=== PATIENT | female | born 1965 | race Two or more races ===

== ENCOUNTER 2021-03-05 17:43 | Inpatient (IN) | payer BC ==
[~2021-03-05] VITALS: Ht 149.9 cm; Wt 62.7 kg
--- NOTE | 2021-03-05 19:30 | ED.ADGEN ---
General Adult EDM: Chief Complaint: SHORTNESS OF BREATH HPI: HPI: Patient is a 55 year old female coming in for multiple complaints associate with Covid. Patient tested postive 7 days ago, and surgeries and limits ago had contact with her son who also tested positive for 10 days prior. Patient has had nonproductive cough, frontal headache, fevers, sore throat, and fatigue. Denies any GI complaints. Patient denies any past medical history. Denies any loss of smell or taste. Has been taking Tylenol for fevers and headache, last dose 3 hours ago. Review of Systems: Review of Systems: All other systems within normal limits except for as noted in the HPI Current Medications: Current Medications Medications (Trade) Dose Ordered Sig/Walt Start Time Stop Time Status Last Admin Dose Admin Acetaminophen (Tylenol) 650 mg PRN Q4HRS PRN 03/05/21 23:30 03/06/21 23:29 Ceftriaxone Sodium (Rocephin) 1 gm 1X ONCE 03/05/21 23:30 03/05/21 23:31 DC 03/05/21 23:56 1 GM Dexamethasone Sodium Phosphate (Decadron) 10 mg 1X ONCE 03/05/21 22:00 03/05/21 22:01 DC 03/05/21 23:01 10 MG Doxycycline Hyclate 100 mg/ Dextrose 100 ml @ 50 mls/hr 1X ONCE 03/05/21 23:30 03/06/21 01:29 DC 03/05/21 23:59 50 MLS/HR Info (CONTRAST GIVEN -- Rx MONITORING) 1 each PRN DAILY PRN 03/05/21 22:15 03/07/21 22:14 Iohexol (Omnipaque 350 Mg/ml) 90 ml 1X ONCE 03/05/21 22:00 03/05/21 22:05 DC Ondansetron HCl (Zofran) 4 mg PRN Q8HRS PRN 03/05/21 23:30 03/06/21 23:29 Sodium Chloride 1,000 ml @ 75 mls/hr [id number] 03/05/21 23:30 03/06/21 23:29 03/05/21 23:58 75 MLS/HR Allergies: Allergies: Allergies Coded Allergies Type Severity Reaction Last Updated Verified No Known Drug Allergies 03/05/21 No Physical Exam: PE: Constitutional: Well developed, well nourished, no acute distress, non-toxic a ppearance. [] HENT: Normocephalic, atraumatic, bilateral external ears normal, nose normal. [] Eyes: PERRLA, conjunctiva normal, no discharge. [] Neck: No rigidity, supple, no stridor. [] Cardiovascular: Regular rate and rhythm, brisk cap refill [] Lungs & Thorax: Non labored symmetric respirations, no tachypnea or respiratory distress [] Abdomen: Soft, nondistended. Skin: Warm, dry, no erythema, no rash. [] Back: Unremarkable Extremities: No deformities, range of motion grossly intact, no lower extremity edema [] Neurologic: Alert and oriented X 3, no focal deficits noted. [] Psychologic: Affect normal, judgement normal, mood normal. [] Current Patient Data: Labs: Laboratory Tests Test 03/05/21 19:55 03/05/21 20:46 03/05/21 21:24 White Blood Count 9.0 x10^3/uL (4.0-11.0) Red Blood Count 4.77 x10^6/uL (3.50-5.40) Hemoglobin 14.0 g/dL (12.0-15.5) Hematocrit 41.6 % (36.0-47.0) Mean Corpuscular Volume 87 fL (79-100) Mean Corpuscular Hemoglobin 29 pg (25-35) Mean Corpuscular Hemoglobin Concent 34 g/dL (31-37) Red Cell Distribution Width 13.9 % (11.5-14.5) Platelet Count 251 x10^3/uL (140-400) Neutrophils (%) (Auto) 87 % (31-73) H Lymphocytes (%) (Auto) 10 % (24-48) L Monocytes (%) (Auto) 2 % (0-9) Eosinophils (%) (Auto) 0 % (0-3) Basophils (%) (Auto) 1 % (0-3) Neutrophils # (Auto) 7.8 x10^3/uL (1.8-7.7) H Lymphocytes # (Auto) 0.9 x10^3/uL (1.0-4.8) L Monocytes # (Auto) 0.2 x10^3/uL (0.0-1.1) Eosinophils # (Auto) 0.0 x10^3/uL (0.0-0.7) Basophils # (Auto) 0.1 x10^3/uL (0.0-0.2) Segmented Neutrophils % 71 % (35-66) H Band Neutrophils % 18 % (0-9) H Lymphocytes % 10 % (24-48) L Monocytes % 1 % (0-10) Platelet Estimate Adequate (ADEQUATE) Lactic Acid Level 1.0 mmol/L (0.4-2.0) Troponin I Quantitative < 0.017 ng/mL (0.000-0.055) D-Dimer (Renuka) 0.64 ug/mlFEU (0.00-0.50) H Sodium Level 142 mmol/L (136-145) Potassium Level 4.9 mmol/L (3.5-5.1) Chloride Level 100 mmol/L (98-107) Carbon Dioxide Level 23 mmol/L (21-32) Anion Gap 19 (6-14) H Blood Urea Nitrogen 7 mg/dL (7-20) Creatinine 0.8 mg/dL (0.6-1.0) Estimated GFR (Cockcroft-Gault) 73.9 BUN/Creatinine Ratio 9 (6-20) Glucose Level 93 mg/dL (70-99) Calcium Level 8.6 mg/dL (8.5-10.1) Magnesium Level 2.5 mg/dL (1.8-2.4) H Total Bilirubin 0.3 mg/dL (0.2-1.0) Aspartate Amino Transferase (AST) 35 U/L (15-37) Alanine Aminotransferase (ALT) 30 U/L (14-59) Alkaline Phosphatase 104 U/L (46-116) HO-Bbc-W-Type Natriuretic Peptide 110 pg/mL (0-124) Total Protein 7.5 g/dL (6.4-8.2) Albumin 3.9 g/dL (3.4-5.0) Albumin/Globulin Ratio 1.1 (1.0-1.7) Urine Collection Type Void Urine Color Yellow Urine Clarity Clear Urine pH 6.5 (<5.0-8.0) Urine Specific [place] 1.010 (1.000-1.030) Urine Protein Negative mg/dL (NEG-TRACE) Urine Glucose (UA) Negative mg/dL (NEG) Urine Ketones (Stick) Negative mg/dL (NEG) Urine Blood Negative (NEG) Urine Nitrite Negative (NEG) Urine Bilirubin Negative (NEG) Urine Urobilinogen Dipstick 0.2 mg/dL (0.2 mg/dL) Urine Leukocyte Esterase Small (NEG) Urine RBC Rare /HPF (0-2) Urine WBC 5-10 /HPF (0-4) Urine Squamous Epithelial Cells Few /LPF Urine Bacteria Few /HPF (0-FEW) Laboratory Tests 03/05/21 19:55 Laboratory Tests 03/05/21 20:46 Vital Signs: Vital Signs Date Time Temp Pulse Resp B/P (MAP) Pulse Ox O2 Delivery O2 Flow Rate FiO2 03/06/21 00:02 102.7 102.7 03/05/21 19:56 70 22 138/69 (92) 95 Room Air EKG: EKG: Sinus rhythm, heart rate 70 bpm, left axis deviation, no ST ovation depression, no ectopy. [] Heart Score: C/O Chest Pain: Yes HEART Score for Chest Pain: HEART Score for Chest Pain Response (Comments) Value History Slighlty/Non-Suspicious 0 ECG Nonspecific Repolarizatio 1 Age >45 - < 65 1 Risk Factors No Risk Factors 0 Troponin < Normal Limit 0 Total 2 Risk Factors: Risk Factors: DM, Current or recent (<one month) smoker, HTN, HLP, family history of CAD, obesity. Risk Scores: Score 0 - 3: 2.5% MACE over next 6 weeks - Discharge Home Score 4 - 6: 20.3% MACE over next 6 weeks - Admit for Clinical Observation Score 7 - 10: 72.7% MACE over next 6 weeks - Early Invasive Strategies Radiology/Procedures: Radiology/Procedures: [facility] [address] [place] [address] IMAGING REPORT Signed PATIENT: JOHANA HAMM ACCOUNT: [id number] : 1965 LOCATION: ER AGE: 55 SEX: F EXAM STATUS: REG ER ORD. PHYSICIAN: HERB MORALEZ MD REASON: pe, dyspnea COVID PROCEDURE: CT ANGIOGRAPHY CHEST Exam: CT of chest with contrast INDICATION: Dyspnea,covid TECHNIQUE: Sequential axial images through the chest obtained following the admi nistration of 90 mL of Isovue-370 IV contrast. Sagittal and coronal reformatted images were reconstructed from the axial data and reviewed. 3-D reformatted images were reconstructed from the axial data and reviewed. Exposure: One or more of the following in the visualized dose reduction techniques were utilized for this examination: 1. Automated exposure control 2. Adjustment of the MA and/or KV according to patient size 3. Use of iterative of reconstructive technique Comparisons: Chest x-ray same day FINDINGS: Visualized portions of the thyroid are unremarkable. No enlarged mediastinal lymph nodes are identified. Heart size is normal. No pericardial effusion. Thoracic aorta has a normal course and caliber. Pulmonary artery is not enlarged. No pulmonary embolus identified within the main, lobar or segmental arteries. Airways are patent. Patchy areas of consolidation in lungs bilaterally. No pneumothorax. No suspicious lung nodules are identified. No pleural effusion or thickening. Visualized upper abdomen is unremarkable. No suspicious osseous lesions or acute fractures. IMPRESSION: 1. No pulmonary embolus identified in the main, lobar or segmental pulmonary arteries. 2. Patchy areas of consolidation in lungs bilaterally favored to be infectious or inflammatory in etiology, consistent with history of Covid Electronically signed by: Marie Campos MD (03/05/2021 11:06 PM) [facility] DICTATED and SIGNED BY: MARIE CAMPOS MD DATE: 03/05/21 [id number] [][facility] [address] [place] [address] IMAGING REPORT Signed PATIENT: JOHANA HAMM ACCOUNT: [id number] : 1965 LOCATION: ER AGE: 55 SEX: F EXAM STATUS: REG ER ORD. PHYSICIAN: HERB MORALEZ MD REASON: headache-COVID PROCEDURE: CT HEAD WO CONTRAST EXAM: CT Head without IV contrast CLINICAL HISTORY: Reason: headache-COVID / Spl. Instructions: / History: COMPARISON: None. TECHNIQUE: Routine CT of the head without contrast. PQRS compliance statement - One or more of the following individualized dose reduction techniques were utilized for this study: 1. Automated exposure control 2. Adjustment of the mA and/or kV according to patient size 3. Use of iterative reconstruction technique FINDINGS: There is no evidence of hemorrhage, mass or extra-axial fluid collection. Bush-white differentiation is maintained with no evidence of edema. There is no mass effect or shift of the intracranial structures. The ventricles, basilar cisterns and cortical sulci are normal in size and configuration for the patients stated age. The cerebellum and brainstem are unremarkable. The calvarium demonstrates no evidence of fracture or focal lesion. There is normal aeration of the visualized paranasal sinuses and mastoid air cells. The visualized portions of the orbits are normal. IMPRESSION: No evidence for acute intracranial process. Electronically signed by: Da Aceves MD (03/05/2021 8:28 PM) [facility] DICTATED and SIGNED BY: DA ACEVES MD DATE: 03/05/[id number] 0 Course & Med Decision Making: Course & Med Decision Making Pertinent Labs and Imaging studies reviewed. (See chart for details) [] Dragon Disclaimer: Dragon Disclaimer: This electronic medical record was generated, in whole or in part, using a voice recognition dictation system. Departure Departure Impression: Primary Impression: COVID-19 Additional Impression: Pneumonia Disposition: ADMITTED INPATIENT Admitting Physician: MARGOT Condition: STABLE Problem Qualifiers HERB MORALEZ MD Mar 05, 2021 19:30
[2021-03-05 20:10] LABS: BASO # 0.1 x10^3/uL (0.0-0.2); BASO % 1 % (0-3); EOS % 0 % (0-3); HEMATOCRIT 41.6 % (36.0-47.0); LYMPH # 0.9 x10^3/uL (1.0-4.8); LYMPH % 10 % (24-48); MEAN CORPUSCULAR HEMOGLOBIN 29 pg (25-35); MEAN CORPUSCULAR HGB CONC 34 g/dL (31-37); MEAN CORPUSCULAR VOLUME 87 fL (79-100); MONO # 0.2 x10^3/uL (0.0-1.1); MONO % 2 % (0-9); NEUT # 7.8 x10^3/uL (1.8-7.7); NEUT % 87 % (31-73); PLATELET COUNT 251 x10^3/uL (140-400); RED BLOOD COUNT 4.77 x10^6/uL (3.50-5.40); RED CELL DISTRIBUTION WIDTH 13.9 % (11.5-14.5)
--- NOTE | 2021-03-05 20:30 | RAD ---
EXAM: CT Head without IV contrast CLINICAL HISTORY: Reason: headache-COVID / Spl. Instructions: / History: COMPARISON: None. TECHNIQUE: Routine CT of the head without contrast. PQRS compliance statement - One or more of the following individualized dose reduction techniques wer e utilized for this study: 1. Automated exposure control 2. Adjustment of the mA and/or kV according to patient size 3. Use of iterative reconstruction technique FINDINGS: There is no evidence of hemorrhage, mass or extra-axial fluid collection. Bush-white differentiation is maintained with no evidence of edema. There is no mass effect or shift of the intracranial structures. The ventricles, basilar cisterns and cortical sulci are normal in size and configuration for the amparo ents stated age. The cerebellum and brainstem are unremarkable. The calvarium demonstrates no evidence of fracture or focal lesion. There is normal aeration of the visualized paranasal sinuses and mastoid air cells. The visualized portions of the orbits are normal. IMPRESSION: No evidence for acute intracranial process. Electronically signed by: Da Mims MD (03/05/2021 8:28 PM) [facility]
[2021-03-05 20:32] LABS: % BANDS 18 % (0-9); % LYMPHS 10 % (24-48); % MONOS 1 % (0-10); % SEGS 71 % (35-66); PLT ESTIMATE ADEQUATE (ADEQUATE)
--- NOTE | 2021-03-05 20:43 | EKG ---
[facility] [address] [place] [address] Test Date: 2021-03-05 Test Time: 19:40:22 Pat Name: JOHANA HAMM Department: Room: Gender: F Enrollment Counselor: : 1965 Requested By: HERB OMRALEZ Order Number: [id number] Reading MD: Measurements Intervals [place] Rate: 70 P: -23 [place]: 142 QRS: -5 QRSD: 70 T: 14 QT: 382 QTc: 415 Interpretive Statements SINUS RHYTHM LEFTWARD AXIS QRS(T) CONTOUR ABNORMALITY CANNOT RULE OUT ANTEROSEPTAL MYOCARDIAL DAMAGE BORDERLINE ECG RI6.02 No previous ECG available for comparison
--- NOTE | 2021-03-05 20:50 | RAD ---
EXAMINATION: XR CHEST 1V CLINICAL HISTORY: Covid EXAM DATE/TIME: 03/05/2021 8:15 PM COMPARISON: None FINDINGS: Lines, Tubes, and Devices: None. Cardiomediastinal Silhouette: Normal heart size. Aortic atherosclerotic calcification. Lungs and Pleura: Pulmonary hypoexpansion with mild subtle patchy opacities bilaterally, greater on t he left. No evidence of pleural effusion or pneumothorax. Bones and Soft Tissues: No acute osseous abnormality. IMPRESSION: Bilateral patchy airspace disease, compatible with viral or atypical pneumonia. Electronically signed by: John Milan DO (03/05/2021 8:48 PM) [facility]
[2021-03-05 21:10] LABS: CALCIUM 8.6 mg/dL (8.5-10.1); CREATININE 0.8 mg/dL (0.6-1.0); GFR 73.9; POTASSIUM 4.9 mmol/L (3.5-5.1)
[2021-03-05 21:16] LABS: ALBUMIN 3.9 g/dL (3.4-5.0); ALBUMIN/GLOBULIN RATIO 1.1 (1.0-1.7); MAGNESIUM 2.5 mg/dL (1.8-2.4); TOTAL BILIRUBIN 0.3 mg/dL (0.2-1.0); TOTAL PROTEIN 7.5 g/dL (6.4-8.2)
[2021-03-05 21:32] LABS: BILIRUBIN,URINE NEGATIVE (NEG); CLARITY,URINE CLEAR; COLOR,URINE YELLOW; NITRITE,URINE NEGATIVE (NEG); PH,URINE 6.5 (<5.0-8.0); PROTEIN,URINE NEGATIVE (NEG-TRACE); UROBILINOGEN,URINE 0.2 mg/dL (0.2 mg/dL)
[2021-03-05 21:40] LABS: BACTERIA,URINE FEW /HPF (0-FEW); RBC,URINE RARE /HPF (0-2)
[2021-03-05] MEDS ORDERED: DEXAMETHASONE SOD PHOS 20 MG/5 ML VIAL. IV ONE (22:00)
[2021-03-05] MEDS ORDERED: IOHEXOL 350 MG/ML 100 ML VIAL. IV ONE (22:00)
[2021-03-05] MEDS ORDERED: CONTRAST GIVEN. MC PRN (22:15)
--- NOTE | 2021-03-05 23:08 | RAD ---
Exam: CT of chest with contrast INDICATION: Dyspnea,covid TECHNIQUE: Sequential axial images through the chest obtained following the administration of 90 mL o f Isovue-370 IV contrast. Sagittal and coronal reformatted images were reconstructed from the axial d hernandez and reviewed. 3-D reformatted images were reconstructed from the axial data and reviewed. Exposure: One or more of the following in the visualized dose reduction techniques were utilized for this examination: 1. Automated exposure control 2. Adjustment of the MA and/or KV according to patient size 3. Use of iterative of reconstructive technique Comparisons: Chest x-ray same day FINDINGS: Visualized portions of the thyroid are unremarkable. No enlarged mediastinal lymph nodes are identifi ed. Heart size is normal. No pericardial effusion. Thoracic aorta has a normal course and caliber. Pulmon jose artery is not enlarged. No pulmonary embolus identified within the main, lobar or segmental arter ies. Airways are patent. Patchy areas of consolidation in lungs bilaterally. No pneumothorax. No suspiciou s lung nodules are identified. No pleural effusion or thickening. Visualized upper abdomen is unremarkable. No suspicious osseous lesions or acute fractures. IMPRESSION: 1. No pulmonary embolus identified in the main, lobar or segmental pulmonary arteries. 2. Patchy areas of consolidation in lungs bilaterally favored to be infectious or inflammatory in et iology, consistent with history of Covid Electronically signed by: Marie Mcclelland MD (03/05/2021 11:06 PM) [facility]
[2021-03-05] MEDS ORDERED: ACETAMINOPHEN 500 MG TABLET PO ONE (23:15)
[2021-03-05] MEDS ORDERED: ONDANSETRON PF 4 MG/2 ML VIAL. IV PRN (23:30)
[2021-03-05] MEDS ORDERED: cefTRIAXone IV Push 1 GM VIAL. IVP ONE (23:30)
[2021-03-05] MEDS ORDERED: DOXYCYCLINE HYCLATE 100 MG in IV DEXTROSE 5% 100ML 100 ML IV ONE (23:30)
[2021-03-05] MEDS ORDERED: ACETAMINOPHEN 325 MG TABLET. PO PRN (23:30)
[2021-03-05] MEDS: IV NORMAL SALINE 1000ML BAG 1,000 ML IV SCH (23:58)
[2021-03-06 01:40] VITALS: BP 111/59
[2021-03-06 07:00] VITALS: BP 98/55
[2021-03-06 07:55] LABS: BASO % 0 % (0-3); EOS % 0 % (0-3); HEMATOCRIT 38.9 % (36.0-47.0); LYMPH # 0.6 x10^3/uL (1.0-4.8); LYMPH % 11 % (24-48); MEAN CORPUSCULAR HEMOGLOBIN 29 pg (25-35); MEAN CORPUSCULAR HGB CONC 34 g/dL (31-37); MEAN CORPUSCULAR VOLUME 87 fL (79-100); MONO # 0.1 x10^3/uL (0.0-1.1); MONO % 1 % (0-9); NEUT # 4.7 x10^3/uL (1.8-7.7); NEUT % 88 % (31-73); PLATELET COUNT 250 x10^3/uL (140-400); RED BLOOD COUNT 4.49 x10^6/uL (3.50-5.40); RED CELL DISTRIBUTION WIDTH 13.8 % (11.5-14.5); WHITE BLOOD COUNT 5.3 x10^3/uL (4.0-11.0)
[2021-03-06 08:09] LABS: CALCIUM 8.1 mg/dL (8.5-10.1); CREATININE 0.7 mg/dL (0.6-1.0); GFR 86.2; POTASSIUM 4.3 mmol/L (3.5-5.1)
--- NOTE | 2021-03-06 08:33 | PDOC1 ---
History and Physical Date of Admission Date of Admission DATE: 03/06/21 TIME: 08:24 Source Source: Patient History of Present Illness History of Present Illness Ms Young is a 55 yo female with no past medical history who presents to ED with progressively worsening shortness of breath. She notes she tested positive for COVID-19, test on 02/26/2021 and her symptoms started on 02/24/2021 over the past 48 hours prior to hospital presentation she has had a headache that is frontal as well as increased shortness of breath with nonproductive cough congestion fever and chills and worsening anosmia. She has diffuse myalgias and nausea with decreased appetite, no vomiting and no abdominal pain. No recent travel, but she notes contact with her son who also tested positive for 10 days prior. Temp 100.4 F on triage Febrile to 102.7 F on repeat. Tachypneic with respiratory rate 24 and 32 breaths/min. EKG sinus rhythm rate of 70 bpm leftward axis normal intervals, QTC [address] segment elevations T wave flattening in lead III. Labs WBC 9, Hb 14, platelets 251, D-dimer 0.64 NA 142, K4.9, BUN 7, CR 0.8, mag 2.5, glucose 93, troponin 0, urinalysis bland Chest radiograph with bilateral patchy airspace disease Given recent history of Covid she underwent a CT pulmonary angiogram with no acute pulmonary embolism noted but patchy consolidation laterally. Head CT with no acute intracranial abnormality. Admitted for further care Past Medical History Cardiovascular: No pertinent hx Past Surgical History Past Surgical History: No pertinent history Family History Family History: Hypertension Social History Smoke: No ALCOHOL: none Drugs: None Current Medications Current Medications Current Medications Dexamethasone Sodium Phosphate (Decadron) 10 mg 1X ONCE IV Last administered on 03/05/21at 23:01; Start 03/05/21 at 22:00; Stop 03/05/21 at 22:01; Status DC Iohexol (Omnipaque 350 Mg/ml) 90 ml 1X ONCE IV ; Start 03/05/21 at 22:00; Stop 03/05/21 at 22:05; Status DC Info (CONTRAST GIVEN -- Rx MONITORING) 1 each PRN DAILY PRN MC SEE COMMENTS; Start 03/05/21 at 22:15; Stop 03/07/21 at 22:14 Acetaminophen (Tylenol) 1,000 mg 1X ONCE PO Last administered on 03/05/21at 23:11; Start 03/05/21 at 23:15; Stop 03/05/21 at 23:16; Status DC Doxycycline Hyclate 100 mg/ Dextrose 100 ml @ 50 mls/hr 1X ONCE IV Last administered on 03/05/21at 23:59; Start 03/05/21 at 23:30; Stop 03/06/21 at 01:29; Status DC Ceftriaxone Sodium (Rocephin) 1 gm 1X ONCE IVP Last administered on 03/05/21at 23:56; Start 03/05/21 at 23:30; Stop 03/05/21 at 23:31; Status DC Ondansetron HCl (Zofran) 4 mg PRN Q8HRS PRN IV NAUSEA/VOMITING; Start 03/05/21 at 23:30; Stop 03/06/21 at 23:29 Sodium Chloride 1,000 ml @ 75 mls/hr [id number] IV Last administered on 03/05/21at 23:58; Start 03/05/21 at 23:30; Stop 03/06/21 at 23:29 Acetaminophen (Tylenol) 650 mg PRN Q4HRS PRN PO FEVER > 100.3'F; Start 03/05/21 at 23:30; Stop 03/06/21 at 23:29 Allergies Allergies: Coded Allergies: No Known Drug Allergies (Unverified , 03/05/21) ROS General: YES: Fatigue, Malaise, Appetite; No: Chills, Night Sweats, Other PSYCHOLOGICAL ROS: No: Anxiety, Behavioral Disorder, Concentration difficultie, Decreased libido, Depression, Disorientation, Hallucinations, Hostility, Irritablity, Memory difficulties, Mood Swings, Obsessive thoughts, Physical abuse, Sexual abuse, Sleep disturbances, Suicidal ideation, Other Eyes: No Blurry vision, No Decreased vision, No Double vision, No Dry eyes, No Excessive tearing, No Eye Pain, No Itchy Eyes, No Loss of vision, No Photophobia, No Scotomata, No Uses contacts, No Uses glasses, No Other HEENT: YES: Heacaches, Nasal congestion; No: Visual Changes, Hearing change, Nasal discharge, Oral lesions, Sinus pain, Sore Throat, Epistaxis, Sneezing, Snoring, Tinnitus, Vertigo, Vocal changes, Other ALLERGY AND IMMUNOLOGY: No: Hives, Insect Bite Sensitivity, Itchy/Watery Eyes, Nasal Congestion, Post Nasal Drip, Seasonal Allergies, Other Hematological and Lymphatic: No: Bleeding Problems, Blood Clots, Blood Transfusions, Brusing, Night Sweats, Pallor, Swollen Lymph Nodes, Other ENDOCRINE: No: Breast Changes, Galactorrhea, Hair Pattern Changes, Hot Flashes, Malaise/lethargy, Mood Swings, Palpitations, Polydipsia/polyuria, Skin Changes, Temperature Intolerance, Unexpected Weight Changes, Other Breast: No New/Changing Breast Lumps, No Nipple changes, No Nipple discharge, No Other Respiratory: YES: Cough, Shortness of breath, SOB with excertion, Tachypnea, Wheezing; No: Hemoptysis, Orthopnea, Pleuritic Pain, Sputum Changes, Stridor, Other Cardiovascular: No Chest Pain, No Palpitations, No Orthopnea, No Paroxysmal Noc. Dyspnea, No Edema, No Lt Headedness, No Other Gastrointestinal: Yes Nausea, Yes Abdominal Pain; No Vomiting, No Diarrhea, No Constipation, No Melena, No Hematochezia, No Other Genitourinary: No Dysuria, No Frequency, No Incontinence, No Hematuria, No Retention, No Discharge, No Urgency, No Pain, No Flank Pain, No Other, No , No , No , No , No , No , No Musculoskeletal: No Gait Disturbance, No Joint Pain, No Joint Stiffness, No Joint Swelling, No Muscle Pain, No Muscular Weakness, No Pain In:, No Swelling In:, No Other Neurological: No Behavorial Changes, No Bowel/Bladder ControlChng, No Confusion, No Dizziness, No Gait Disturbance, No Headaches, No Impaired Coord /balance, No Memory Loss, No Numbness/Tingling, No Seizures, No Speech Problems, No Tremors, No Visual Changes, No Weakness, No Other Skin: No Dry Skin, No Eczema, No Hair Changes, No Lumps, No Mole Changes, No Mottling, No Nail Changes, No Pruritus, No Rash, No Skin Lesion Changes, No Other, No Acne Physical Exam General: Alert, Oriented X3, Cooperative, moderate distress HEENT: Atraumatic, PERRLA, EOMI, Mucous membr. moist/pink Lungs: Other (Diffuse wheezing, right lower lung rhonchi) Heart: S1S2, RRR, no thrills, no rubs, no gallops, no murmurs Abdomen: Normal bowel sounds, Soft, No tenderness, No hepatosplenomegaly, No masses Rectal Exam: not examined Extremities: No clubbing, No cyanosis, No edema, Normal pulses, No tenderness/swelling Skin: No rashes, No breakdown, No significant lesion Neuro: Normal gait, Normal speech, Strength at 5/5 X4 ext, Normal tone, Sensation intact, Cranial nerves 3-12 NL, Reflexes 2+ Psych/Mental Status: Mental status NL, Mood NL Vitals Vitals Vital Signs Date Time Temp Pulse Resp B/P (MAP) Pulse Ox O2 Delivery O2 Flow Rate FiO2 03/06/21 03:20 74 94 Room Air 03/06/21 01:40 99.8 24 111/59 (76) 99.8 Labs Labs Laboratory Tests Test 03/05/21 19:55 03/05/21 20:46 03/05/21 21:24 03/06/21 07:40 White Blood Count 9.0 x10^3/uL (4.0-11.0) 5.3 x10^3/uL (4.0-11.0) Red Blood Count 4.77 x10^6/uL (3.50-5.40) 4.49 x10^6/uL (3.50-5.40) Hemoglobin 14.0 g/dL (12.0-15.5) 13.0 g/dL (12.0-15.5) Hematocrit 41.6 % (36.0-47.0) 38.9 % (36.0-47.0) Mean Corpuscular Volume 87 fL (79-100) 87 fL (79-100) Mean Corpuscular Hemoglobin 29 pg (25-35) 29 pg (25-35) Mean Corpuscular Hemoglobin Concent 34 g/dL (31-37) 34 g/dL (31-37) Red Cell Distribution Width 13.9 % (11.5-14.5) 13.8 % (11.5-14.5) Platelet Count 251 x10^3/uL (140-400) 250 x10^3/uL (140-400) Neutrophils (%) (Auto) 87 % (31-73) 88 % (31-73) Lymphocytes (%) (Auto) 10 % (24-48) 11 % (24-48) Monocytes (%) (Auto) 2 % (0-9) 1 % (0-9) Eosinophils (%) (Auto) 0 % (0-3) 0 % (0-3) Basophils (%) (Auto) 1 % (0-3) 0 % (0-3) Neutrophils # (Auto) 7.8 x10^3/uL (1.8-7.7) 4.7 x10^3/uL (1.8-7.7) Lymphocytes # (Auto) 0.9 x10^3/uL (1.0-4.8) 0.6 x10^3/uL (1.0-4.8) Monocytes # (Auto) 0.2 x10^3/uL (0.0-1.1) 0.1 x10^3/uL (0.0-1.1) Eosinophils # (Auto) 0.0 x10^3/uL (0.0-0.7) 0.0 x10^3/uL (0.0-0.7) Basophils # (Auto) 0.1 x10^3/uL (0.0-0.2) 0.0 x10^3/uL (0.0-0.2) Segmented Neutrophils % 71 % (35-66) Band Neutrophils % 18 % (0-9) Lymphocytes % 10 % (24-48) Monocytes % 1 % (0-10) Platelet Estimate Adequate (ADEQUATE) Lactic Acid Level 1.0 mmol/L (0.4-2.0) Troponin I Quantitative < 0.017 ng/mL (0.000-0.055) D-Dimer (Renuka) 0.64 ug/mlFEU (0.00-0.50) Sodium Level 142 mmol/L (136-145) 138 mmol/L (136-145) Potassium Level 4.9 mmol/L (3.5-5.1) 4.3 mmol/L (3.5-5.1) Chloride Level 100 mmol/L (98-107) 103 mmol/L (98-107) Carbon Dioxide Level 23 mmol/L (21-32) 25 mmol/L (21-32) Anion Gap 19 (6-14) 10 (6-14) Blood Urea Nitrogen 7 mg/dL (7-20) 7 mg/dL (7-20) Creatinine 0.8 mg/dL (0.6-1.0) 0.7 mg/dL (0.6-1.0) Estimated GFR (Cockcroft-Gault) 73.9 86.2 BUN/Creatinine Ratio 9 (6-20) Glucose Level 93 mg/dL (70-99) 179 mg/dL (70-99) Calcium Level 8.6 mg/dL (8.5-10.1) 8.1 mg/dL (8.5-10.1) Magnesium Level 2.5 mg/dL (1.8-2.4) Total Bilirubin 0.3 mg/dL (0.2-1.0) Aspartate Amino Transf (AST/SGOT) 35 U/L (15-37) Alanine Aminotransferase (ALT/SGPT) 30 U/L (14-59) Alkaline Phosphatase 104 U/L (46-116) YF-Tgb-G-Type Natriuretic Peptide 110 pg/mL (0-124) Total Protein 7.5 g/dL (6.4-8.2) Albumin 3.9 g/dL (3.4-5.0) Albumin/Globulin Ratio 1.1 (1.0-1.7) Urine Collection Type Void Urine Color Yellow Urine Clarity Clear Urine pH 6.5 (<5.0-8.0) Urine Specific [place] 1.010 (1.000-1.030) Urine Protein Negative mg/dL (NEG-TRACE) Urine Glucose (UA) Negative mg/dL (NEG) Urine Ketones (Stick) Negative mg/dL (NEG) Urine Blood Negative (NEG) Urine Nitrite Negative (NEG) Urine Bilirubin Negative (NEG) Urine Urobilinogen Dipstick 0.2 mg/dL (0.2 mg/dL) Urine Leukocyte Esterase Small (NEG) Urine RBC Rare /HPF (0-2) Urine WBC 5-10 /HPF (0-4) Urine Squamous Epithelial Cells Few /LPF Urine Bacteria Few /HPF (0-FEW) Laboratory Tests Test 03/05/21 19:55 03/05/21 20:46 03/05/21 21:24 03/06/21 07:40 White Blood Count 9.0 x10^3/uL (4.0-11.0) 5.3 x10^3/uL (4.0-11.0) Red Blood Count 4.77 x10^6/uL (3.50-5.40) 4.49 x10^6/uL (3.50-5.40) Hemoglobin 14.0 g/dL (12.0-15.5) 13.0 g/dL (12.0-15.5) Hematocrit 41.6 % (36.0-47.0) 38.9 % (36.0-47.0) Mean Corpuscular Volume 87 fL (79-100) 87 fL (79-100) Mean Corpuscular Hemoglobin 29 pg (25-35) 29 pg (25-35) Mean Corpuscular Hemoglobin Concent 34 g/dL (31-37) 34 g/dL (31-37) Red Cell Distribution Width 13.9 % (11.5-14.5) 13.8 % (11.5-14.5) Platelet Count 251 x10^3/uL (140-400) 250 x10^3/uL (140-400) Neutrophils (%) (Auto) 87 % (31-73) 88 % (31-73) Lymphocytes (%) (Auto) 10 % (24-48) 11 % (24-48) Monocytes (%) (Auto) 2 % (0-9) 1 % (0-9) Eosinophils (%) (Auto) 0 % (0-3) 0 % (0-3) Basophils (%) (Auto) 1 % (0-3) 0 % (0-3) Neutrophils # (Auto) 7.8 x10^3/uL (1.8-7.7) 4.7 x10^3/uL (1.8-7.7) Lymphocytes # (Auto) 0.9 x10^3/uL (1.0-4.8) 0.6 x10^3/uL (1.0-4.8) Monocytes # (Auto) 0.2 x10^3/uL (0.0-1.1) 0.1 x10^3/uL (0.0-1.1) Eosinophils # (Auto) 0.0 x10^3/uL (0.0-0.7) 0.0 x10^3/uL (0.0-0.7) Basophils # (Auto) 0.1 x10^3/uL (0.0-0.2) 0.0 x10^3/uL (0.0-0.2) Segmented Neutrophils % 71 % (35-66) Band Neutrophils % 18 % (0-9) Lymphocytes % 10 % (24-48) Monocytes % 1 % (0-10) Platelet Estimate Adequate (ADEQUATE) Lactic Acid Level 1.0 mmol/L (0.4-2.0) Troponin I Quantitative < 0.017 ng/mL (0.000-0.055) D-Dimer (Renuka) 0.64 ug/mlFEU (0.00-0.50) Sodium Level 142 mmol/L (136-145) 138 mmol/L (136-145) Potassium Level 4.9 mmol/L (3.5-5.1) 4.3 mmol/L (3.5-5.1) Chloride Level 100 mmol/L (98-107) 103 mmol/L (98-107) Carbon Dioxide Level 23 mmol/L (21-32) 25 mmol/L (21-32) Anion Gap 19 (6-14) 10 (6-14) Blood Urea Nitrogen 7 mg/dL (7-20) 7 mg/dL (7-20) Creatinine 0.8 mg/dL (0.6-1.0) 0.7 mg/dL (0.6-1.0) Estimated GFR (Cockcroft-Gault) 73.9 86.2 BUN/Creatinine Ratio 9 (6-20) Glucose Level 93 mg/dL (70-99) 179 mg/dL (70-99) Calcium Level 8.6 mg/dL (8.5-10.1) 8.1 mg/dL (8.5-10.1) Magnesium Level 2.5 mg/dL (1.8-2.4) Total Bilirubin 0.3 mg/dL (0.2-1.0) Aspartate Amino Transf (AST/SGOT) 35 U/L (15-37) Alanine Aminotransferase (ALT/SGPT) 30 U/L (14-59) Alkaline Phosphatase 104 U/L (46-116) VI-Qts-Y-Type Natriuretic Peptide 110 pg/mL (0-124) Total Protein 7.5 g/dL (6.4-8.2) Albumin 3.9 g/dL (3.4-5.0) Albumin/Globulin Ratio 1.1 (1.0-1.7) Urine Collection Type Void Urine Color Yellow Urine Clarity Clear Urine pH 6.5 (<5.0-8.0) Urine Specific [place] 1.010 (1.000-1.030) Urine Protein Negative mg/dL (NEG-TRACE) Urine Glucose (UA) Negative mg/dL (NEG) Urine Ketones (Stick) Negative mg/dL (NEG) Urine Blood Negative (NEG) Urine Nitrite Negative (NEG) Urine Bilirubin Negative (NEG) Urine Urobilinogen Dipstick 0.2 mg/dL (0.2 mg/dL) Urine Leukocyte Esterase Small (NEG) Urine RBC Rare /HPF (0-2) Urine WBC 5-10 /HPF (0-4) Urine Squamous Epithelial Cells Few /LPF Urine Bacteria Few /HPF (0-FEW) Images Images CT of chest with contrast Visualized portions of the thyroid are unremarkable. No enlarged mediastinal l ymph nodes are identified. Heart size is normal. No pericardial effusion. Thoracic aorta has a normal course and caliber. Pulmonary artery is not enlarged. No pulmonary embolus identified within the main, lobar or segmental arteries. Airways are patent. Patchy areas of consolidation in lungs bilaterally. No pneumothorax. No suspicious lung nodules are identified. No pleural effusion or thickening. Visualized upper abdomen is unremarkable. No suspicious osseous lesions or acute fractures. IMPRESSION: 1. No pulmonary embolus identified in the main, lobar or segmental pulmonary arteries. 2. Patchy areas of consolidation in lungs bilaterally favored to be infectious or inflammatory in etiology, consistent with history of Covid Routine CT of the head without contrast: There is no evidence of hemorrhage, mass or extra-axial fluid collection. Bush-white differentiation is maintained with no evidence of edema. There is no mass effect or shift of the intracranial structures. The ventricles, basilar cisterns and cortical sulci are normal in size and configuration for the patients stated age. The cerebellum and brainstem are unremarkable. The calvarium demonstrates no evidence of fracture or focal lesion. There is normal aeration of the visualized paranasal sinuses and mastoid air cells. The visualized portions of the orbits are normal. IMPRESSION: No evidence for acute intracranial process. VTE Prophylaxis Ordered VTE Prophylaxis Devices: Yes VTE Pharmacological Prophylaxi: Yes Assessment/Plan Assessment/Plan A/P: Shortness of breath -dyspnea related to COVID-19 with what appears to be a secondary bacterial pneumonia. Community-acquired pneumonia -secondary to COVID-19. Will cover empirically for atypical organisms given bilateral appearance. Doxycycline and Rocephin. COVID-19 -no hypoxia. Will give supportive care and initiate steroids and remdesivir if she does have O2 requirements. Sepsis - febrile with increased RR and pneumonia. Given empiric IVF and antibiotics FEN -General diet PPX - lovenox FULL CODE Dispo - inpatient Justifications for Admission Other Justification LATOYA FRANCO MD Mar 06, 2021 08:33
[2021-03-06 11:00] VITALS: BP 101/53
[2021-03-06] MEDS ORDERED: guaiFENesin DM 200MG/20MG 10 ML SYRUP PO PRN (13:15)
[2021-03-06] MEDS ORDERED: ONDANSETRON PF 4 MG/2 ML VIAL. IV PRN (13:15)
[2021-03-06] MEDS: DOXYCYCLINE HYCLATE 100 MG TABLET PO SCH ×2 (13:44→21:29)
[2021-03-06] MEDS: IV NORMAL SALINE 1000ML BAG 1,000 ML IV SCH (13:46)
[2021-03-06 15:00] VITALS: BP 115/61
[2021-03-06 19:00] VITALS: BP 119/62
[2021-03-06] MEDS: ACETAMINOPHEN 325 MG TABLET. PO PRN (19:10)
[2021-03-06] MEDS ORDERED: PSYLLIUM HUSK (SUGAR FREE) 1 PKT PACKET PO SCH (21:00)
[2021-03-06] MEDS ORDERED: cefTRIAXone IV Push 1 GM VIAL. IVP SCH (21:00)
[2021-03-06] MEDS ORDERED: ENOXAPARIN 40 MG/0.4 ML SYRINGE. SQ SCH (21:00)
[2021-03-06] MEDS: LACTOBACILLUS RHAMNOSUS GG 1 CAPSULE. PO SCH (21:28)
[2021-03-06] MEDS: guaiFENesin DM 200MG/20MG 10 ML SYRUP PO PRN (21:29)
[2021-03-06 23:01] VITALS: BP 122/61
[2021-03-07 03:07] VITALS: BP 127/61
[2021-03-07] MEDS: ACETAMINOPHEN 325 MG TABLET. PO PRN ×2 (03:54→11:46)
[2021-03-07 07:00] VITALS: BP 118/52
[2021-03-07] MEDS: LACTOBACILLUS RHAMNOSUS GG 1 CAPSULE. PO SCH (08:55)
[2021-03-07] MEDS: DOXYCYCLINE HYCLATE 100 MG TABLET PO SCH (08:55)
--- NOTE | 2021-03-07 09:32 | PDOC ---
[facility] PROGRESS NOTE Date of Service DOS: DATE: 03/07/21 TIME: 09:30 Chief Complaint Chief Complaint A/P: Shortness of breath -dyspnea related to COVID-19 with what appears to be a secondary bacterial pneumonia. Community-acquired pneumonia -secondary to COVID-19. Will cover empirically for atypical organisms given bilateral appearance. Doxycycline and Rocephin. Sepsis - febrile with increased RR and pneumonia. Given empiric IVF and antibiotics COVID-19 -no hypoxia. Will give supportive care and initiate steroids and remdesivir if she does have O2 requirements. FEN -General diet PPX - lovenox FULL CODE Dispo - inpatient History of Present Illness History of Present Illness Ms Young is a 55 yo female with no past medical history who presents to ED with progressively worsening shortness of breath. She notes she tested positive for COVID-19, test on 02/26/2021 and her symptoms started on 02/24/2021 over the past 48 hours prior to hospital presentation she has had a headache 10/ 10 that is frontal as well as increased shortness of breath with nonproductive cough congestion fever and chills and worsening anosmia. She has diffuse myalgias and nausea with decreased appetite, no vomiting and no abdominal pain. No recent travel, but she notes contact with her son who also tested positive for 10 days prior. Temp 100.4 F on triage Febrile to 102.7 F on repeat. Tachypneic with respiratory rate 24 and 32 breaths/min. EKG sinus rhythm rate of 70 bpm leftward axis normal intervals, QTC [address] segment elevations T wave flattening in lead III. Labs WBC 9, Hb 14, platelets 251, D-dimer 0.64 NA 142, K4.9, BUN 7, CR 0.8, mag 2.5, glucose 93, troponin 0, urinalysis bland Chest radiograph with bilateral patchy airspace disease Given recent history of Covid she underwent a CT pulmonary angiogram with no acute pulmonary embolism noted but patchy consolidation laterally. Head CT with no acute intracranial abnormality. Admitted for further care Febrile overnight to 100.5 F. Overall think she is feeling improved. No O2 requirements. Cough is productive, has some wheezing, albuterol inhaler ordered. Thinks she can go home today Vitals/I&O Vitals/I&O: Vital Signs Date Time Temp Pulse Resp B/P (MAP) Pulse Ox O2 Delivery O2 Flow Rate FiO2 03/07/21 07:00 96.6 62 16 118/52 (74) 95 Room Air 96.6 I & O 03/06/21 03/06/21 03/07/21 15:00 23:00 07:00 Intake Total 600 ml 300 ml Balance 600 ml 300 ml Physical Exam General: Alert, Oriented X3, Cooperative, moderate distress Abdomen: Normal bowel sounds, Soft, No tenderness, No hepatosplenomegaly, No masses Extremities: No clubbing, No cyanosis, No edema, Normal pulses, No tenderness/swelling Skin: No rashes, No breakdown, No significant lesion Comment Review of Relevant I have reviewed the following items afia (where applicable) has been applied. Medications: Current Medications Medications (Trade) Dose Ordered Sig/Walt Route PRN Reason Start Time Stop Time Status Last Admin Dose Admin Acetaminophen (Tylenol) 650 mg PRN Q6HRS PRN PO FEVER > 100.3'F 03/06/21 13:15 03/07/21 03:54 Guaifenesin (Robitussin Dm) 10 ml PRN Q6HRS PRN PO COUGH 03/06/21 13:15 03/06/21 21:25 DC 03/06/21 13:50 Psyllium Hydrophilic Mucilloid (Metamucil Fiber Packet) 1 pkt QHS PO 03/06/21 21:00 03/06/21 21:30 Ceftriaxone Sodium (Rocephin) 1 gm Q24H IVP 03/06/21 21:00 03/06/21 21:30 Doxycycline Hyclate (Vibra-Tab) 100 mg BID PO 03/06/21 14:00 03/07/21 08:55 Enoxaparin Sodium (Lovenox 40mg Syringe) 40 mg QHS SQ 03/06/21 21:00 03/06/21 21:29 Lactobacillus Rhamnosus (Culturelle) 1 cap BID PO 03/06/21 21:00 03/07/21 08:55 Guaifenesin (Robitussin Dm) 10 ml PRN Q6HRS PRN PO COUGH 03/06/21 21:30 03/06/21 21:29 Justifications for Admission Other Justification LATOYA FRANCO MD Mar 07, 2021 09:32
[2021-03-07] MEDS ORDERED: ALBUTEROL SULFATE 8GM INHALER. INH PRN (09:45)
[2021-03-07] MEDS: guaiFENesin DM 200MG/20MG 10 ML SYRUP PO PRN (10:38)
[2021-03-07 11:00] VITALS: BP 119/51
[2021-03-07] MEDS ORDERED: CEFDINIR 300 MG CAPSULE PO SCH (11:00)
[2021-03-07] MEDS ORDERED: LACT1CAP19 PO (13:06)
[2021-03-07] MEDS ORDERED: ALBU8HFA INH (13:06)
[2021-03-07] MEDS ORDERED: CEFD300C PO (13:06)
[2021-03-07] MEDS ORDERED: ACET325T21 PO (13:06)
[2021-03-07] MEDS ORDERED: GUAI5SYR PO (13:06)
[2021-03-07] MEDS ORDERED: DOXY100T PO (13:06)
[2021-03-07 15:00] VITALS: BP 119/51
--- NOTE | 2021-03-07 17:06 | PDOC3 ---
Discharge Summary Visit Information Date of Admission: Mar 06, 2021 Date of Discharge: Mar 07, 2021 Admitting Diagnosis: Community acquired pneumonia COVID 19 Final Diagnosis Community acquired pneumonia COVID 19 Brief Hospital Course Allergies Allergies Coded Allergies Type Severity Reaction Last Updated Verified No Known Drug Allergies 03/05/21 No Vital Signs Vital Signs Date Time Temp Pulse Resp B/P (MAP) Pulse Ox O2 Delivery O2 Flow Rate FiO2 03/07/21 15:00 97.6 60 16 119/51 (73) 95 Room Air 97.6 Lab Results Laboratory Tests Test 03/05/21 19:55 03/05/21 20:46 03/05/21 21:24 03/06/21 07:40 White Blood Count 9.0 x10^3/uL (4.0-11.0) 5.3 x10^3/uL (4.0-11.0) Red Blood Count 4.77 x10^6/uL (3.50-5.40) 4.49 x10^6/uL (3.50-5.40) Hemoglobin 14.0 g/dL (12.0-15.5) 13.0 g/dL (12.0-15.5) Hematocrit 41.6 % (36.0-47.0) 38.9 % (36.0-47.0) Mean Corpuscular Volume 87 fL (79-100) 87 fL (79-100) Mean Corpuscular Hemoglobin 29 pg (25-35) 29 pg (25-35) Mean Corpuscular Hemoglobin Concent 34 g/dL (31-37) 34 g/dL (31-37) Red Cell Distribution Width 13.9 % (11.5-14.5) 13.8 % (11.5-14.5) Platelet Count 251 x10^3/uL (140-400) 250 x10^3/uL (140-400) Neutrophils (%) (Auto) 87 % (31-73) 88 % (31-73) Lymphocytes (%) (Auto) 10 % (24-48) 11 % (24-48) Monocytes (%) (Auto) 2 % (0-9) 1 % (0-9) Eosinophils (%) (Auto) 0 % (0-3) 0 % (0-3) Basophils (%) (Auto) 1 % (0-3) 0 % (0-3) Neutrophils # (Auto) 7.8 x10^3/uL (1.8-7.7) 4.7 x10^3/uL (1.8-7.7) Lymphocytes # (Auto) 0.9 x10^3/uL (1.0-4.8) 0.6 x10^3/uL (1.0-4.8) Monocytes # (Auto) 0.2 x10^3/uL (0.0-1.1) 0.1 x10^3/uL (0.0-1.1) Eosinophils # (Auto) 0.0 x10^3/uL (0.0-0.7) 0.0 x10^3/uL (0.0-0.7) Basophils # (Auto) 0.1 x10^3/uL (0.0-0.2) 0.0 x10^3/uL (0.0-0.2) Segmented Neutrophils % 71 % (35-66) Band Neutrophils % 18 % (0-9) Lymphocytes % 10 % (24-48) Monocytes % 1 % (0-10) Platelet Estimate Adequate (ADEQUATE) Lactic Acid Level 1.0 mmol/L (0.4-2.0) Troponin I Quantitative < 0.017 ng/mL (0.000-0.055) D-Dimer (Renuka) 0.64 ug/mlFEU (0.00-0.50) Sodium Level 142 mmol/L (136-145) 138 mmol/L (136-145) Potassium Level 4.9 mmol/L (3.5-5.1) 4.3 mmol/L (3.5-5.1) Chloride Level 100 mmol/L (98-107) 103 mmol/L (98-107) Carbon Dioxide Level 23 mmol/L (21-32) 25 mmol/L (21-32) Anion Gap 19 (6-14) 10 (6-14) Blood Urea Nitrogen 7 mg/dL (7-20) 7 mg/dL (7-20) Creatinine 0.8 mg/dL (0.6-1.0) 0.7 mg/dL (0.6-1.0) Estimated GFR (Cockcroft-Gault) 73.9 86.2 BUN/Creatinine Ratio 9 (6-20) Glucose Level 93 mg/dL (70-99) 179 mg/dL (70-99) Calcium Level 8.6 mg/dL (8.5-10.1) 8.1 mg/dL (8.5-10.1) Magnesium Level 2.5 mg/dL (1.8-2.4) Total Bilirubin 0.3 mg/dL (0.2-1.0) Aspartate Amino Transf (AST/SGOT) 35 U/L (15-37) Alanine Aminotransferase (ALT/SGPT) 30 U/L (14-59) Alkaline Phosphatase 104 U/L (46-116) GG-[id number]-Type Natriuretic Peptide 110 pg/mL (0-124) Total Protein 7.5 g/dL (6.4-8.2) Albumin 3.9 g/dL (3.4-5.0) Albumin/Globulin Ratio 1.1 (1.0-1.7) Urine Collection Type Void Urine Color Yellow Urine Clarity Clear Urine pH 6.5 (<5.0-8.0) Urine Specific [place] 1.010 (1.000-1.030) Urine Protein Negative mg/dL (NEG-TRACE) Urine Glucose (UA) Negative mg/dL (NEG) Urine Ketones (Stick) Negative mg/dL (NEG) Urine Blood Negative (NEG) Urine Nitrite Negative (NEG) Urine Bilirubin Negative (NEG) Urine Urobilinogen Dipstick 0.2 mg/dL (0.2 mg/dL) Urine Leukocyte Esterase Small (NEG) Urine RBC Rare /HPF (0-2) Urine WBC 5-10 /HPF (0-4) Urine Squamous Epithelial Cells Few /LPF Urine Bacteria Few /HPF (0-FEW) Brief Hospital Course Ms Young is a 55 yo female with no past medical history who presents to ED with progressively worsening shortness of breath. She notes she tested positive for COVID-19, test on 02/26/2021 and her symptoms started on 02/24/2021 over the past 48 hours prior to hospital presentation she has had a headache 10/ 10 that is frontal as well as increased shortness of breath with nonproductive cough congestion fever and chills and worsening anosmia. She has diffuse myalgias and nausea with decreased appetite, no vomiting and no abdominal pain. No recent travel, but she notes contact with her son who also tested positive for 10 days prior. Temp 100.4 F on triage Febrile to 102.7 F on repeat. Tachypneic with respiratory rate 24 and 32 breaths/min. EKG sinus rhythm rate of 70 bpm leftward axis normal intervals, QTC [address] segment elevations T wave flattening in lead III. Labs WBC 9, Hb 14, platelets 251, D-dimer 0.64 NA 142, K4.9, BUN 7, CR 0.8, mag 2.5, glucose 93, troponin 0, urinalysis bland Chest radiograph with bilateral patchy airspace disease Given recent history of Covid she underwent a CT pulmonary angiogram with no acute pulmonary embolism noted but patchy consolidation laterally. Head CT with no acute intracranial abnormality. Admitted for further care Febrile overnight to 100.5 F. Overall think she is feeling improved. No O2 requirements. Cough is productive, has some wheezing, albuterol inhaler ordered. Thinks she can go home today Feeling little better after 48 hours of antibiotics. Advised to continue to is olate as she does still have Covid symptoms, CDC recommendations for isolation to add additional 3 days after respiratory symptoms have resolved. Problem list: Shortness of breath -dyspnea related to COVID-19 with what appears to be a secondary bacterial pneumonia. Albuterol inhaler helping, going home with one. Community-acquired pneumonia -secondary to COVID-19. Will cover empirically for atypical organisms given bilateral appearance. Doxycycline and Rocephin--> cefdinir additional 5 days. Sepsis - febrile with increased RR and pneumonia. Given empiric IVF and antibiotics COVID-19 -no hypoxia. PRN robitussin DM and zinc 50 mg daily Will give supportive care and initiate steroids and remdesivir if she does have O2 requirements, given strict instructions to return if she does and has pulse oximeter to measure O2 at home Greater than 30 minutes spent on d/c home with self care. Discharge Information Condition at Discharge: Improved Follow Up: Weeks (1) Disposition/Orders: D/C to Home Scheduled Cefdinir (Cefdinir) 300 Mg Capsule, 300 MG PO BID for Pneumonia for 5 Days, #10 Prescribed by: LATOYA FRANCO MD on 03/07/21 1306 Doxycycline Hyclate (Doxycycline Hyclate) 100 Mg Tablet, 100 MG PO BID for Pneumonia for 5 Days, #10 Prescribed by: LATOYA FRANCO MD on 03/07/21 1306 Lactobacillus Rhamnosus Gg (Culturelle) 1 Each Cap.sprink, 1 CAP PO BID for Diarrhea for 14 Days, #28 Prescribed by: LATOYA FRANCO MD on 03/07/21 1306 Scheduled PRN Acetaminophen (Acetaminophen) 325 Mg Tablet, 650 MG PO PRN Q6HRS PRN for FEVER > 100.3'F for 30 Days, #120 Prescribed by: LATOYA FRANCO MD on 03/07/21 1306 Albuterol Sulfate (Ventolin Hfa) 8 Gm Hfa.aer.ad, 2 PUFF INH PRN Q4HRS PRN for SHORTNESS OF BREATH for 30 Days, #1 Prescribed by: LATOYA FRANCO MD on 03/07/21 1306 Guaifenesin/Dextromethorphan (Guaifenesin Dm Syrup) 5 Ml Syrup, 10 ML PO PRN Q6HRS PRN for COUGH for 30 Days, #120 Prescribed by: LATOYA FRANCO MD on 03/07/21 1306 Justicifation of Admission Dx: Justifications for Admission: Justification of Admission Dx: Yes LATOYA FRANCO MD Mar 07, 2021 17:06
--- NOTE | 2021-03-07 17:30 | NUR ---
Discharge Note: [facility] Discharge instructions and discharge home medications reviewed with Patient and a copy given. Discharge instructions also reviewed with . All questions have been answered and understanding verbalized. The following instructions and handouts were given: Covid-19 isolation and discharge instructions disscussed. Discontinued IV line. Patient discharged to home with self-care.
== END 2021-03-07 17:30 | disposition home or self-care (01) | DRG 871 ==
LOC: ER 17:43 → ED HOLD 03-06 00:23 → 6 SOUTH 03-06 01:30
PROVIDERS: ADMIT Family Medicine; ATTEND Family Medicine
DX: A41.9 Sepsis, unspecified organism (principal); J15.8 Pneumonia due to other specified bacteria; U07.1 COVID-19; J12.82 Pneumonia due to coronavirus disease 2019; Z82.49 Family history of ischemic heart disease and other diseases of the circulatory system; Z79.899 Other long term (current) drug therapy
CPT/HCPCS: 36415; 70450; 71045; 71275; 80048; 80053; 81001; 83605; 83735; 83880; 84484; 85007; 85025; 85379; 87040; 87086; 93005; 96365; 96375; J0696; J1100; J1650; J3490; J7030; J7060; 99285-25; G0378